=== PATIENT | male | born 1960 | race Caucasian/White ===

== ENCOUNTER 2021-11-23 09:26 | Outpatient (CLI) | payer MEDICAID, SELFPAY ==
[2021-11-23 10:59] VITALS: BMI 31.1
--- NOTE | 2021-11-23 10:59 | ECG_ITS ---
[facility] Test Date: 2021-11-23 Pat Name: Nathaniel Fontenot Department: Room: Gender: Male Technical Service Representative: Nola Vazquez : 1960 Requested By: Colleen Ellis Order Number: [id number] Rebeca MD: Rosalee Cabello M.D. Interpretive Statements NAME OF STUDY: LEXISCAN SESTAMIBI STRESS TEST INDICATION: Chest Pain PROCEDURE: At the baseline, the blood pressure was 147/75 mm Hg with a heart rate of 82 bpm. The electrocardiogram showed sinus rhythm, poor anterior R wave progression. The Lexiscan was infused over a period of 20 seconds. A total of 0.4 milligrams of Lexiscan was infused. The stress phase was continued for a total of 5 minutes. Heart rate at the end of the stress phase was 97 bpm with a blood pressure of 140/70 mm Hg. The EKG at the peak infusion revealed sinus rhythm with no significant ST-T wave changes. Sestamibi was injected 20 seconds after the Lexiscan infusion. Blood pressure at the end of the recovery phase was 134/75 mm Hg with a heart rate of 90 beats per minute. CONCLUSION: 1. No significant EKG changes with the LexiScan infusion. 2. No LexiScan induced chest pain or cardiac arrhythmia. 3. Normal blood pressure and heart rate response. 4. Sestamibi/sestamibi perfusion scan pending; see separate report. Electronically Signed On 12-09-2021 6:47:27 TESTING CONSULTANT by Rosalee Cabello M.D. [id number]
--- NOTE | 2021-11-23 10:59 | NMCV_ITS ---
NM dorinda perf SPECT r/s* [id number] Nathaniel Fontenot Age: 61 Gender: M : 1960 Exam Date: 11/23/2021 11:02 Ordering Phys: Colleen Ellis MD ([email or web address]) Technologist: VIC Donald Exam Location: [facility] Indications: CHEST PAIN STRESS TEST Please [facility] IMAGE PROTOCOL Stress/Rest 1 Lexiscan Day Radiopharmaceutical Dose (mCi) Administration Site Administered by Rest: Tc-99m 10.7 IV VIC Reyez Sestamibi Stress:Tc-99m 32.6 IV VIC Donald Sestamisandrita Rest: 23-Nov-2021 60 Discovery 630 Stress: 23-Nov-2021 30 Discovery 630 0.4mg Lexiscan. Supine position only as patient was unable to lay prone. SPECT RESULTS Technical Quality: Excellent Raw Data Analysis: Normal Image Corrections: No attenuation or motion correction applied Summed Stress Score: 15 Summed Rest Score: 20 Summed Difference Score: 0 PERFUSION FINDINGS Large area of fixed perfusion defect noted in basal to distal inferior and apical wall on both rest and stress images suggestive of old myocardial infarction versus artifact. Small area of mild reversibility noted in basal inferolateral wall suggestive of possible ischemia in the circumflex territory. Small area of fixed perfusion defect noted in mid anterior wall suggestive of possible artifact FUNCTIONAL RESULTS (calculated via Gated SPECT) Stress Image LV EF (%): 67 Stress EDV (mL):88 TID: 1.04 Stress ESV (mL):29 Rest Image LV EF (%): 67 FUNCTIONAL FINDINGS: Inferior wall severe hypokinesis. Apical and apical inferior akinesis IMPRESSIONS Large area of old myocardial infarction versus scarring noted in basal distended and apical wall without ai-infarct ischemia. Small area of questionable ischemia versus artifact noted in basal inferolateral wall. In general no significant ischemia noted. EKG segment will be documented separately. Colleen Ellis MD (Electronically Signed) Final Date: 24 November 2021 18:36 S
[2021-11-23] MEDS: regadenoson 0.4 Mg/5 ml Syringe IVP (11:33)
[2021-11-23 11:45] VITALS: BP 134/75; PULSE 90
== END 2021-11-23 09:27 | disposition home or self-care (01) ==
LOC: RAD 09:41 → CDL 10:30
PROVIDERS: PCP Student in an Organized Health Care Education/Training Program; Visit Provider Internal Medicine Cardiovascular Disease
DX: R07.9 Chest pain, unspecified (principal); R06.02 Shortness of breath
CPT/HCPCS: 78452; 93017; A9500; J2785

== ENCOUNTER → 2021-12-24 14:42 | Outpatient (BNVA) | payer MEDICAID, SELFPAY | PROVIDERS: PCP Student in an Organized Health Care Education/Training Program; Visit Provider Internal Medicine | DX: Z01.818 Encounter for other preprocedural examination (principal); I25.810 Atherosclerosis of coronary artery bypass graft(s) without angina pectoris; I10 Essential (primary) hypertension | CPT/HCPCS: 99214 ==

== ENCOUNTER → 2022-03-17 14:30 | Outpatient (BNVA) | payer MEDICAID, SELFPAY | PROVIDERS: PCP Student in an Organized Health Care Education/Training Program; Referring Provider Student in an Organized Health Care Education/Training Program; Visit Provider Orthopaedic Surgery | DX: M17.12 Unilateral primary osteoarthritis, left knee (principal); M25.562 Pain in left knee | CPT/HCPCS: 73560; 73565; 99203; 99204 ==

== ENCOUNTER 2022-04-26 11:01 | Observation (INO) | payer MEDICAID, SELFPAY ==
--- NOTE | 2022-04-21 12:54 | ECG_ITS ---
[facility] Test Date: 2022-04-21 Pat Name: Nathaniel Nevarez Department: Room: Gender: Male Site Supervising Technical Operator: : 1960 Requested By: Austin Hook Order Number: [id number] Rebeca MD: Colton Sarmiento M.D. Measurements Intervals [place] Rate: 84 P: 59 OK: 136 QRS: 68 QRSD: 89 T: 37 QT: 347 QTc: 412 Interpretive Statements SINUS RHYTHM POSSIBLE LEFT ATRIAL ENLARGEMENT [-0.1mV P-WAVE IN V1/V2] POSSIBLE ANTERIOR MYOCARDIAL INFARCTION , OF INDETERMINATE AGE [30 ms Q WAVE IN V3/V4, OR R < 0.2 mV IN V4] PROBABLE INFERIOR MYOCARDIAL INFARCTION , OF INDETERMINATE AGE [35 ms Q WAVE IN II/aVF] No previous ECG available for comparison Electronically Signed On 04-21-2022 17:59:26 CDT by Colton Sarmiento M.D. [id number]
[2022-04-21 13:05] VITALS: BMI 30.2
[2022-04-21 13:43] LABS: Anion Gap 16.4 (5-19); Blood Urea Nitrogen 16 mg/dL (8-23); Calcium 8.7 mg/dL (8.5-10.5); Carbon Dioxide 24 mmol/L (22-29); Chloride 101 mmol/L (98-107); Glomerular Filtration Rate 75.7 mL/min (90-130); Glucose 175 mg/dL (65-115); Osmolality Calculated 289 mOsm/kg (285-295); Potassium 4.4 mmol/L (3.5-5.1); Sodium 137 mmol/L (136-145)
--- NOTE | 2022-04-21 13:44 | ANES.PREANE2 ---
Pre-Anesthetic Assessment Height/Weight: Height 1.73 m Weight 90.265 kg Operation Date: 04/26/22 09:35 Proposed Procedures p Left total knee arthroplasty: 16533,M17.12(Left) - Everett Briones MD Familial anesthetic complications: None Was Beta Lalo taken within 24 hours: Yes Was Clonidine taken within 24 hours: N/A Social No alcohol and No tobacco Exam alert, oriented x 3, clear to auscultation bilaterally and regular rate & rhythm Airway Submandibular: within normal limits Cervical ROM: within normal limits Mallampati: Class II Dentition: full CV/HEM Coronary Artery Disease (CABG) and Hypertension GI Gastroesophageal Reflux Disease Metabolic Diabetes Mellitus and Hyperlipidemia [facility] [place] Osteoarthritis/DJD Anesthetic Plan ASA status: 3 Anesthesia: Regional (specify below) (SAB with adductor blk) Medications/Allergies Home Medications Medication Instructions Recorded Confirmed Last Taken Type acetaminophen 500 mg tablet 500 mg PO Q6H PRN 09/21/21 04/21/22 Unknown History aspirin 81 mg tablet,delayed 81 mg PO DAILY 09/21/21 04/21/22 Unknown History release (Adult Low Dose Aspirin) atorvastatin 80 mg tablet 80 mg PO DAILY 09/21/21 04/21/22 Unknown History celecoxib 200 mg capsule (Celebrex) 200 mg PO BID 09/21/21 04/21/22 Unknown History colchicine 0.6 mg tablet 0.3 mg PO DAILY 09/21/21 04/21/22 Unknown History dapagliflozin 10 mg tablet 10 mg PO DAILY 09/21/21 04/21/22 Unknown History (Farxiga) fluticasone propionate 50 1 spray INTRANASAL DAILY 09/21/21 04/21/22 Unknown History mcg/actuation nasal spray,suspension (Allergy Relief (fluticasone)) glipizide 5 mg tablet 5 mg PO BID 09/21/21 04/21/22 Unknown History ibuprofen 200 mg tablet 200 mg PO Q6H PRN 09/21/21 04/21/22 Unknown History insulin degludec 100 unit/mL (3 56 unit SUBCUT DAILY ml 09/21/21 04/21/22 Unknown History mL) subcutaneous pen (Tresiba FlexTouch U-100 insulin) liraglutide 0.6 mg/0.1 mL (18 mg/3 1.8 mg SUBCUT DAILY 09/21/21 04/21/22 Unknown History mL) subcutaneous pen injector (Victoza 2-Lopez) metoprolol succinate 50 mg 50 mg PO DAILY #90 tab 09/21/21 04/21/22 Unknown Rx tablet,extended release 24 hr multivitamin 1 tab PO DAILY 09/21/21 04/21/22 Unknown History omeprazole 20 mg capsule,delayed 20 mg PO DAILY 09/21/21 04/21/22 Unknown History release tamsulosin 0.4 mg capsule (Flomax) 0.4 mg PO DAILY 09/21/21 04/21/22 Unknown History tramadol 50 mg tablet 50 mg PO Q6H PRN 09/21/21 04/21/22 Unknown History travoprost 0.004 % eye drops 1 drp OPHTHALMIC (EYE) BEDTIME 09/21/21 04/21/22 Unknown History (Travatan Z) zolpidem 10 mg tablet (Ambien) 10 mg PO .hs tab 09/21/21 04/21/22 Unknown History Allergies Allergy/AdvReac Type Severity Reaction Status Date / Time None Allergy Unknown Unknown Uncoded 03/17/22 14:41 PFS Anesthesia Medical History CAD (coronary artery disease) HTN (hypertension) Family History Mother Hypertension Father COPD (chronic obstructive pulmonary disease) Social History Smoking and tobacco status: never smoked Alcohol intake: never Data Anesthesia : 04/21/22 13:20 BMP 04/21/22 13:20 Sodium 137 Potassium 4.4 Chloride 101 Carbon Dioxide 24 BUN 16 Creatinine 1.0 Glucose 175 H Calcium 8.7 Cardiac Studies: Sestamibi Stress Test (Cardiology) 11/23/21
[2022-04-26] VITALS (17 sets, daily range): BP systolic 108–173; BP diastolic 67–93; PULSE 55–93; RESP 10–20; TEMP 36.1–36.8; O2SAT 95–100; BMI 30.2
[2022-04-26] MEDS: sodium chloride 0.9% 1,000 ML 30 ML IV (08:16)
[2022-04-26] MEDS: oxyCODONE 20 mg ER (12 HR) Tablet PO (08:18)
[2022-04-26] MEDS: CELEcoxib 200 mg Capsule 400 MG PO (08:18)
[2022-04-26] MEDS: acetaminophen 500 mg Tablet 1000 MG PO ×2 (08:18→17:14)
[2022-04-26] MEDS: gabapentin 300 mg Capsule PO ×2 (08:19→17:12)
--- NOTE | 2022-04-26 08:44 | P.ANESASSM_ITS ---
Pre-Anesthetic Assessment Height/Weight: Height 1.73 m Weight 90.265 kg Temp Pulse Resp BP Pulse Ox 97.6 F 93 18 173/93 98 04/26/22 07:49 04/26/22 07:49 04/26/22 07:49 04/26/22 07:49 04/26/22 07:49 Preop Diagnosis: OsteoarthritisLeft knee Operation Date: 04/26/22 09:35 Proposed Procedures p Left total knee arthroplasty: 67046,M17.12(Left) - Everett Briones MD Familial anesthetic complications: None Was Beta Lalo taken within 24 hours: N/A Was Clonidine taken within 24 hours: N/A Last intake: Intake Last Liquid Date 04/25/22 Last Liquid Time 18:00 Last Solid Date 04/25/22 Last Solid Time 14:00 Social No alcohol and No tobacco Exam alert, oriented x 3, clear to auscultation bilaterally and regular rate & rhythm Airway Submandibular: within normal limits Cervical ROM: within normal limits Mallampati: Class I Dentition: full History/ROS No significant complaints Pulmonary None reported CV/HEM None reported None reported Hepatic None reported GI None reported Metabolic None reported Musc/skel None reported Neuropsych None reported Anesthetic Plan ASA status: 1 Anesthesia: Anesthesia Evaluation and General Other: We discussed risk and benefits of general anesthesia including PONV, sore throat (sometimes severe), corneal abrasion, positioning and peripheral nerve injuries, life threatening allergic reaction, post operative ICU admission requiring prolonged intubation, stroke, heart attack, , and rare incidences of recall. Patient consents to proceed with general anesthesia. Risk of > 500 ml blood loss (7ml/kg in children): No Medications/Allergies Home Medications Medication Instructions Recorded Confirmed Last Taken Type acetaminophen 500 mg tablet 650 mg PO Q6H PRN 09/21/21 04/26/22 04/26/22 06:00 History aspirin 81 mg tablet,delayed 81 mg PO DAILY 09/21/21 04/26/22 04/24/22 History release (Adult Low Dose Aspirin) atorvastatin 80 mg tablet 80 mg PO DAILY 09/21/21 04/26/22 04/25/22 19:30 History celecoxib 200 mg capsule (Celebrex) 200 mg PO BID 09/21/21 04/26/22 04/25/22 07:00 History colchicine 0.6 mg tablet (Colcrys) 0.6 mg PO DAILY 09/21/21 04/26/22 04/25/22 07:00 History dapagliflozin 10 mg tablet 10 mg PO DAILY 09/21/21 04/26/22 04/24/22 History (Farxiga) fluticasone propionate 50 1 spray INTRANASAL DAILY 09/21/21 04/26/22 04/25/22 20:00 History mcg/actuation nasal spray,suspension (Allergy Relief (fluticasone)) glipizide 5 mg tablet 5 mg PO BID 09/21/21 04/26/22 04/25/22 07:00 History ibuprofen 200 mg tablet 200 mg PO Q6H PRN 09/21/21 04/26/22 04/24/22 History insulin degludec 100 unit/mL (3 56 unit SUBCUT DAILY ml 09/21/21 04/26/22 04/25/22 20:00 History mL) subcutaneous pen ([employer] FlexTouch U-100 insulin) liraglutide 0.6 mg/0.1 mL (18 mg/3 1.8 mg SUBCUT DAILY 09/21/21 04/26/22 04/24/22 History mL) subcutaneous pen injector (Acision 2-Lopez) metoprolol succinate 50 mg 50 mg PO DAILY #90 tab 09/21/21 04/26/22 04/26/22 06:00 Rx tablet,extended release 24 hr multivitamin 1 tab PO DAILY 09/21/21 04/26/22 04/24/22 History omeprazole 20 mg capsule,delayed 20 mg PO DAILY 09/21/21 04/26/22 04/26/22 06:00 History release tamsulosin 0.4 mg capsule (Flomax) 0.4 mg PO DAILY 09/21/21 04/26/22 04/25/22 07:00 History tramadol 50 mg tablet 50 mg PO Q6H PRN 09/21/21 04/26/22 04/26/22 06:00 History travoprost 0.004 % eye drops 1 drp OPHTHALMIC (EYE) BEDTIME 09/21/21 04/26/22 04/25/22 20:00 History (Travatan Z) zolpidem 10 mg tablet (Ambien) 10 mg PO .hs tab 09/21/21 04/26/22 04/25/22 20:00 History caffeine 200 mg tablet 200 mg PO BID PRN 04/26/22 04/26/22 04/26/22 06:00 History loperamide 2 mg capsule 2 mg PO Q4H PRN 04/26/22 04/26/22 04/26/22 06:00 History Allergies Allergy/AdvReac Type Severity Reaction Status Date / Time No Known Allergies Allergy Verified 04/26/22 07:51 Current Medications Generic Name Dose Route Start Last Admin Trade Name Nayan PRN Reason Stop Dose Admin Sodium Chloride 1,000 mls @ 30 mls/hr 04/26/22 07:45 04/26/22 08:16 Sodium Chloride 0.9% IV 04/27/22 07:44 30 mls/hr .Q24H YESENIA Administration PFSH Anesthesia Medical History CAD (coronary artery disease) HTN (hypertension) Family History Mother Hypertension Father COPD (chronic obstructive pulmonary disease) Social History Smoking and tobacco status: never smoked Alcohol intake: never Data Anesthesia : 04/21/22 13:20 Cardiac Studies: Sestamibi Stress Test (Cardiology) 11/23/21
--- NOTE | 2022-04-26 08:59 | W.PM.OPSFHP ---
Same Day Surgery H&P Indication for Procedure/HPI DATE OF PROCEDURE: April 26, 2022 CHIEF COMPLAINT/INDICATIONFOR SURGICAL PROCEDURE: Osteoarthritis left knee here for total knee arthroplasty PREOP DIAGNOSIS: OsteoarthritisLeft knee PLANNED PROCEDURE: Operation Date: 04/26/22 09:35 Proposed Procedures p Left total knee arthroplasty: 67084,M17.12(Left) - Everett Briones MD 61-year-old has failed anti-inflammatories and corticosteroid injections. Severe pain with ambulate severe pain with ambulation, requiring crutches. Here for elective left total knee arthroplasty Medications/Allergies* Home Medications Medication Instructions Recorded Confirmed Type acetaminophen 500 mg tablet 650 mg PO Q6H PRN 09/21/21 04/26/22 History aspirin 81 mg tablet,delayed 81 mg PO DAILY 09/21/21 04/26/22 History release (Adult Low Dose Aspirin) atorvastatin 80 mg tablet 80 mg PO DAILY 09/21/21 04/26/22 History celecoxib 200 mg capsule (Celebrex) 200 mg PO BID 09/21/21 04/26/22 History colchicine 0.6 mg tablet (Colcrys) 0.6 mg PO DAILY 09/21/21 04/26/22 History dapagliflozin 10 mg tablet 10 mg PO DAILY 09/21/21 04/26/22 History (Farxiga) fluticasone propionate 50 1 spray INTRANASAL DAILY 09/21/21 04/26/22 History mcg/actuation nasal spray,suspension (Allergy Relief (fluticasone)) glipizide 5 mg tablet 5 mg PO BID 09/21/21 04/26/22 History ibuprofen 200 mg tablet 200 mg PO Q6H PRN 09/21/21 04/26/22 History insulin degludec 100 unit/mL (3 56 unit SUBCUT DAILY ml 09/21/21 04/26/22 History mL) subcutaneous pen (Tresiba FlexTouch U-100 insulin) liraglutide 0.6 mg/0.1 mL (18 mg/3 1.8 mg SUBCUT DAILY 09/21/21 04/26/22 History mL) subcutaneous pen injector (Victoza 2-Lopez) multivitamin 1 tab PO DAILY 09/21/21 04/26/22 History omeprazole 20 mg capsule,delayed 20 mg PO DAILY 09/21/21 04/26/22 History release tamsulosin 0.4 mg capsule (Flomax) 0.4 mg PO DAILY 09/21/21 04/26/22 History tramadol 50 mg tablet 50 mg PO Q6H PRN 09/21/21 04/26/22 History travoprost 0.004 % eye drops 1 drp OPHTHALMIC (EYE) BEDTIME 09/21/21 04/26/22 History (Travatan Z) zolpidem 10 mg tablet (Ambien) 10 mg PO .hs tab 09/21/21 04/26/22 History caffeine 200 mg tablet 200 mg PO BID PRN 04/26/22 04/26/22 History loperamide 2 mg capsule 2 mg PO Q4H PRN 04/26/22 04/26/22 History Allergies/Adverse Reactions Allergy/AdvReac Type Severity Reaction Status Date / Time No Known Allergies Allergy Verified 04/26/22 07:51 Current Medications: Generic Name Dose Route Start Last Admin Trade Name Freq PRN Reason Stop Dose Admin Sodium Chloride 1,000 mls @ 30 mls/hr 04/26/22 07:45 04/26/22 08:16 Sodium Chloride 0.9% IV 04/27/22 07:44 30 mls/hr .Q24H YESENIA Administration Pertinent History/Comorbid Conditions* Medical History (Updated 03/17/22 @ 15:38 by Everett Briones MD) CAD (coronary artery disease) HTN (hypertension) Family History (Updated 09/21/21 @ 09:21 by Paulette Olmos RN) COPD (chronic obstructive pulmonary disease) Father Hypertension Mother Social History Smoking and tobacco status: never smoked Alcohol intake: never Pertinent Exam Findings alert, oriented x 3, clear to auscultation bilaterally, regular rate & rhythm and operative site marked Recommendations Surgery/Procedure today Coding Level of Care Code Acute Boring Machine Operator Production for Leftyg Neal
[2022-04-26] MEDS: midazolam 1 mg/mL INJ 5 ML 5 MG IVP (09:10)
--- NOTE | 2022-04-26 09:12 | SUR.PREOP ---
0915-Time out was completed at bedside in OPS RM11. Dr Martinez and RN preformed block at patient tolerated well
--- NOTE | 2022-04-26 09:23 | ANES.PROC ---
Anesthesia Procedures Procedure/Date: 04/26/22 Nerve Block ^: Nerve Block 1: Main Anesthesia: spinal anesthesia block Time Out Performed: Yes Consent: requested by attending/covering physician, from patient, risks and benefits reviewed and patient agrees to proceed Nerve block location: adductor canal Anesthesia monitors applied: pulse oximetry, EKG, BP cuff and oxygen Nerve block position: supine Anesthetic Used: ropivicaine 0.5% Amount of anesthesia used (mL): 15 Ultrasound used to: recognize landmarks and visualize and ID femerol nerve Nerve Stimulator Used?: No Interscalene/Femoral BLK: 4 stimuplex 21 g needle used for position and inplane approach, visualize local anesthetic spread and no vascular puncture identified Injection: neg aspiration of heme Patient Tolerated Procedure: well Complications: none Additional Comments: After time out sterile prep, using sterile technique, and using real time US guidance for target selection needle was inserted with real time visualization of needle entry and real time visualization of needle advancement toward intended target. Negative aspiration. LA injected incrementally with negative aspiration every 5 cc and real time US visualization of LA spread throughout procedure. Tolerated well. Image(s) saved.
[2022-04-26] MEDS: ceFAZolin 2,000 MG in sodium chloride 0.9% (plus) 50 ML 100 MG IV (09:40)
[2022-04-26] MEDS: tranexamic acid 1,000 mg/10mL SDV 1000 MG IV (09:58)
[2022-04-26] MEDS: tobramycin 40 mg/mL SDV 2mL 160 MG XX (10:20)
[2022-04-26] MEDS: tranexamic acid 1,000 mg/10mL SDV 1000 MG XX (10:21)
[2022-04-26] MEDS: ketorolac 30 mg/mL INJ XX (10:21)
[2022-04-26] MEDS: EPINEPHrine 1 mg/mL INJ XX (10:22)
--- NOTE | 2022-04-26 11:20 | XRR_ITS ---
PROCEDURE INFORMATION: Exam: XR Left Knee Exam date and time: 04/26/2022 11:33 AM Age: 61 years old Clinical indication: Device placement; Joint replacement hardware; Prior surgery; Surgery date: Post-operative (0-2 days); Surgery type: Left total knee arthroplasty TECHNIQUE: Imaging protocol: Radiologic exam of the Left knee. Views: 1 or 2 views. COMPARISON: CR XR knees AP WB w LT lmt ORTH 03/17/2022 2:58 PM FINDINGS: Bones/joints: The patient has undergone recent insertion of a total knee prosthesis. Some gas is present in the soft tissues from the recent surgery. There are no fractures. Soft tissues: See Bones/joints finding. XR/XR knee LT 1-2V [id number] IMPRESSION: Satisfactory appearance of the knee prosthesis.
--- NOTE | 2022-04-26 11:21 | P.OP_ITS ---
Operative Report Date of procedure: April 26, 2022 Pre-op diagnosis: Preop Diagnosis OsteoarthritisLeft knee Post-op diagnosis: same Post-op diagnosis: Same Post-op findings: Same Procedure done: Left total knee arthroplasty Implants: [place] total knee arthroplasty components were used includin) Size 5 triathalon cruciate retaining femoral component 2) Size 6 Tritanium tibial component 3) size 6, 11 mm thickness CR tibial insert Pathology: none sent Surgeon: Everett Briones Anesthesia: Nerve Block (Spinal, adductor canal block) Estimated blood loss (mL): 100 Complications: None Findings: Exposed subchondral bone medial femoral condyle. An area of old impaction was seen over the anterior lateral femoral condyle Condition: stable Disposition: PACU Procedure: The patient was taken to the operating room. Patient was given 1 g of tranexamic acid . The above anesthesia provided by the anesthesia service. A timeout was performed. The patient was prepped and draped in the usual fashion with the lower extremity exposed. A anterior incision was made, midline, from a point proximal to the patella to the distal tibial tubercle. The knee was entered through a medial parapatellar approach. The patella could be displaced laterally and the knee flexed. The patellar fat pad was resected to provide better visibility. Retractors were placed medially and laterally adjacent to the tibial plateau. The femoral canal was drilled in line with the longitudinal axis of the femur. Intramedullary femoral guide for used to make a distal femoral cut in 5 degrees of valgus, resecting 8 mm from the more prominent condyle. Next the extra medullary tibial guide was placed in alignment with the longitudinal axis of the tibia. The cutting guides were set to remove sufficient bone to eliminate the area of bone loss over the anterior lateral tibia. The proximal tibia was then cut removing approximately 9 mm of medial tibial bone. The femoral measuring guide was then placed over the distal femur. Rotation was verified checking the relationship of the guide to the condyle and the trochlear groove. The femur was measured and cut for the desired femoral component. The desired tibial baseplate was then chosen. A trial reduction with the femur tibial baseplate and polyethylene was done, assuring that the knee was stable throughout full motion. The patella was inspected and the cartilage found to be of satisfactory quality without osteophytes. It tracked reasonably within the trochlea throughout range of motion. A decision was made to not resurfaced patella. The femur and tibia were then press-fit into place. The posterior capsule and collateral ligaments were then injected with a solution of 100 mL of 0.2% ropivacaine, 1 mL of a 1:1000 epinephrine solution, 30 mg of Toradol, and 1 g of tranexamic acid. Final polyethylene component was then snapped into place into the tibia. The extensor retinaculum was closed with a running 1 Stratafix interrupted 1 Ethibond. The subcutaneous tissues were closed with 2-0 Vicryl and the skin was closed with a running 4-0 Stratafix. The wound was covered with a Dermabond Prineo dressing. It was covered with 4xrs and a compressive Tubigauze was applied. The patient was taken to recovery room in stable condition.
--- NOTE | 2022-04-26 11:40 | SUR.PHASEI ---
1126 PT TO PACU 5 PT AWAKES TO VOICE, VERBALLY DENIES PAIN, AND NAUSEA, PT WAS SPINAL ANESTHESIA, PT ON RA NO DISTRESS NOTED , GOOD RESP , LT KNEE DRESSING D/I FIRST ICE TO SITE, LT FOOT WITH STRONG REGULAR PULSE NOTED, BILAT FOOT PUMPS ON, IV TO LT FOREARM #20 WITH NS 300 ML UP AT KVO RATE PER GRAVITY, HOB AT 30 DEGREES SPINAL LEVEL ( PT STATES NORMAL SENSATION TO TOUCH) AT T 8 PT ID BRACELET TO RT WRIST PT ID'D WITH 2 IDENTIFIERS. MONITOR SR WITH NO ECTOPY NOTED.
--- NOTE | 2022-04-26 11:43 | SUR.PHASEI ---
1140 X RAYS DONE, PT TOLERATED WELL, DR ANGEL AT BEDSIDE.
--- NOTE | 2022-04-26 11:51 | SUR.PHASEI ---
DR ANGEL AT BEDSIDE TALKING WITH PT, PT ALERT TALKATIVE, [place], DRESSING D/I.
[2022-04-26 12:30] LABS: Glucose Point of Care 177 mg/dL (70-110)
[2022-04-26] MEDS: sodium chloride 0.9% 1,000 ML 100 ML IV ×2 (12:37→22:48)
[2022-04-26] MEDS: insulin lispro 100 unit/1 mL SUBCUT ×2 (12:38→21:04)
--- NOTE | 2022-04-26 13:01 | PC.NURSE ---
Patient states feeling has not returned to feet bilaterally. Pedal pulses palpated bilaterally, capillary refill <2 seconds.
--- NOTE | 2022-04-26 14:17 | ANE.PACU2 ---
Inpatient post-anesthesia follow up: Airway intact: Yes Vital signs: Temperature 98.0 F Pulse Rate 65 Respiratory Rate 15 Blood Pressure 140/73 Pulse Oximetry 100 Oxygen Delivery Me thod Room Air Oxygen Flow Rate Fraction of Inspir ed Oxygen Hydration adequate: Yes Nausea and vomiting: No Pain level: 1 Mental status: Baseline
--- NOTE | 2022-04-26 14:25 | PC.NURSE ---
Patient states BLE are still numb feeling. PT aware. AR RN
[2022-04-26] MEDS: oxyCODONE 5 mg IR Tab/Cap PO (14:31)
--- NOTE | 2022-04-26 15:20 | PC.NURSE ---
PT to bedside for therapy. JAYASHREE RN
--- NOTE | 2022-04-26 15:24 | PC.NURSE ---
Patient educated on IS use. Patient verbalized understanding. AR RN
[2022-04-26 16:54] LABS: Glucose Point of Care 87 mg/dL (70-110)
[2022-04-26] MEDS: CELEcoxib 200 mg Capsule PO (17:12)
[2022-04-26 21:00] LABS: Glucose Point of Care 260 mg/dL (70-110)
--- NOTE | 2022-04-26 21:00 | PC.NURSE ---
Ice pack changed
--- NOTE | 2022-04-26 23:00 | PC.NURSE ---
ice pack changed
[2022-04-27] MEDS: acetaminophen 500 mg Tablet 1000 MG PO ×2 (00:10→11:57)
--- NOTE | 2022-04-27 02:00 | PC.NURSE ---
ice pack changed
[2022-04-27 04:27] VITALS: BP 169/83; PULSE 77; RESP 16; TEMP 36.7; O2SAT 99
[2022-04-27 04:27] LABS: Hemoglobin 14.2 g/dL (11.7-16.6)
--- NOTE | 2022-04-27 04:28 | PC.NURSE ---
ice pack changed
[2022-04-27 06:07] VITALS: RESP 16
[2022-04-27] MEDS: oxyCODONE 5 mg IR Tab/Cap PO (06:07)
--- NOTE | 2022-04-27 06:20 | PC.NURSE ---
ice pack changed
[2022-04-27 07:13] LABS: Glucose Point of Care 202 mg/dL (70-110)
[2022-04-27] MEDS: insulin lispro 100 unit/1 mL SUBCUT (07:36)
[2022-04-27] MEDS: aspirin 81 mg EC Tablet PO (07:37)
[2022-04-27] MEDS: gabapentin 300 mg Capsule PO (07:38)
[2022-04-27] MEDS: CELEcoxib 200 mg Capsule PO (07:38)
[2022-04-27] MEDS: tamsulosin 0.4 mg Capsule PO (07:38)
[2022-04-27] MEDS: pantoprazole DR 40 mg Tablet PO (07:39)
[2022-04-27] MEDS: colchicine 0.6 mg Tablet PO (09:18)
[2022-04-27] MEDS: metoprolol succinate ER (24 HR) 50 mg Tablet PO (09:18)
[2022-04-27] MEDS: atorvastatin 40 mg Tablet 80 MG PO (09:18)
--- NOTE | 2022-04-27 11:00 | PM.DCS ---
Discharge Providers Date of Admission: 04/26/22 11:01 Date of Discharge: April 27, 2022 Attending Provider at Admission: Everett Angel MD Attending Provider at Discharge: Everett Angel MD Primary Care Provider: Timmy [facility] Course Hospital Course The patient tolerated surgery well. They remained hemodynamically stable. They was begun on aspirin and Toprol for DVT prophylaxis. The patient was mobilized with therapy beginning the day of surgery and by the first postoperative day independent with the walker. As the pain was adequately controlled and they were fully mobile they were discharged home. Physical Exam Narrative: On the day of discharge the knee incision was clean. They had no drainage. There is minimal swelling in the thigh and knee and the calf. No distal neurovascular deficits were noted Discharge Data Studies Completed and Pending Completed Studies During Hospitalization Category Date Time Status XR knee LT 1-2V 21537 Routine Exams 04/26/22 11:20 Completed Radiology Impressions Knee X-Ray 04/26/22 11:20 IMPRESSION: Satisfactory appearance of the knee prosthesis. Laboratory Results Hgb 14.2 g/dL (11.7-16.6) 04/27/22 04:18 Sodium 137 mmol/L (136-145) 04/21/22 13:20 Potassium 4.4 mmol/L (3.5-5.1) 04/21/22 13:20 Chloride 101 mmol/L (98-107) 04/21/22 13:20 Carbon Dioxide 24 mmol/L (22-29) 04/21/22 13:20 Anion Gap 16.4 (5-19) 04/21/22 13:20 BUN 16 mg/dL (8-23) 04/21/22 13:20 Creatinine 1.0 mg/dL (0.7-1.2) 04/21/22 13:20 GFR Calculation 75.7 mL/min (90-130) L 04/21/22 13:20 Glucose 175 mg/dL (65-115) H 04/21/22 13:20 POC Glucose 202 mg/dL (70-110) H 04/27/22 07:06 Calculated Osmolality 289 mOsm/kg (285-295) 04/21/22 13:20 Calcium 8.7 mg/dL (8.5-10.5) 04/21/22 13:20 Vitals Last Vital Signs Temp 98.0 F 04/27/22 04:27 Pulse 77 04/27/22 04:27 Resp 16 04/27/22 06:07 BP 169/83 04/27/22 04:27 Pulse Ox 99 04/27/22 04:27 Discharge Plan Discharge Patient Disposition: Home Condition: Stable Prescriptions: New oxycodone 5 mg Tablet 5 mg PO Q4H PRN (Reason: Moderate Pain) 7 Days Qty: 30 0RF gabapentin 300 mg Capsule 300 mg PO BID 7 Days Qty: 14 0RF Continued multivitamin Tablet 1 tab PO DAILY 0RF acetaminophen 500 mg tablet 650 mg PO Q6H PRN (Reason: Pain) 0RF ibuprofen 200 mg tablet 200 mg PO Q6H PRN (Reason: Pain) 0RF glipizide 5 mg tablet 5 mg PO BID 0RF omeprazole 20 mg capsule,delayed release(DR/EC) 20 mg PO DAILY 0RF colchicine [Colcrys] 0.6 mg tablet 0.6 mg PO DAILY 0RF Tresiba FlexTouch U-100 100 unit/mL (3 mL) insulin pen 56 unit SUBCUT DAILY 0RF Victoza 2-Lopez 0.6 mg/0.1 mL (18 mg/3 mL) pen injector 1.8 mg SUBCUT DAILY 0RF atorvastatin 80 mg tablet 80 mg PO DAILY 0RF Farxiga 10 mg tablet 10 mg PO DAILY 0RF aspirin [Adult Low Dose Aspirin] 81 mg tablet,delayed release (DR/EC) 81 mg PO DAILY 0RF fluticasone propionate [Allergy Relief (fluticasone)] 50 mcg/actuation spray,suspension 1 spray intranasal DAILY 0RF Rx Instructions: administer into each nostril tramadol 50 mg tablet 50 mg PO Q6H PRN (Reason: Pain) 0RF celecoxib [Celebrex] 200 mg capsule 200 mg PO BID 0RF zolpidem [Ambien] 10 mg tablet 10 mg PO .hs 0RF travoprost [Travatan Z] 0.004 % drops 1 drp ophthalmic (eye) BEDTIME 0RF tamsulosin [Flomax] 0.4 mg capsule 0.4 mg PO DAILY 0RF metoprolol succinate 50 mg tablet extended release 24 hr 50 mg PO DAILY Qty: 90 4RF caffeine 200 mg Tablet 200 mg PO BID PRN (Reason: Fatigue) 0RF Imodium 2 mg Capsule 2 mg PO Q4H PRN (Reason: Diarrhea) 0RF Rx Instructions: administer after each loose stool until symptoms controlled; do not exceed 8 mg per 24 hrs Discharge Orders: Discharge Order (Routine); Ordered 04/27/22 Ordered By: Everett Angel Referrals: Miguel Melchor FNP [Physician Bicycle Taxi Driver] - 04/30/22 9:00 am Discharge Diet: Advance as tolerated Discharge Activity: Limit activity as instructed Patient Instructions: Opioid Safety Activity Restrictions/Additional Instructions: Okay to shower Keep Tubigauze sleeve in place for swelling. Okay to remove for hygiene. Apply FirstIce up to 20 min/hr for pain and swelling Take Neurontin twice a day for 7 days. take oxycodone for breakthrough pain. Exercises per physical therapy. May weight-bear as tolerated on total knee arthroplasty IF HAVE ANY PROBLEMS OR QUESTIONS CALL [facility] AND ASK TO HAVE DR. ANGEL PAGED. Discharge Attestations Time Spent in Discharge Care*: other Quality Metrics Clinical Quality Measures [ No reported AMI, CVA or VTE this stay] Coding Level of Care Code Acute Chg ALEXANDRU note
[2022-04-27 12:08] VITALS: BP 153/89; PULSE 95; RESP 16; TEMP 36.4; O2SAT 98
== END 2022-04-27 16:45 | disposition home or self-care (01) ==
LOC: OBGYN 11:01
PROVIDERS: Anesthesiology; Admitting Provider Orthopaedic Surgery; PCP Student in an Organized Health Care Education/Training Program; Visit Provider Orthopaedic Surgery
PROC: (CPT 27447; principal; 2022-04-26 09:15)
DX: M17.12 Unilateral primary osteoarthritis, left knee (principal); Z79.82 Long term (current) use of aspirin; I25.10 Atherosclerotic heart disease of native coronary artery without angina pectoris; I10 Essential (primary) hypertension; Z95.1 Presence of aortocoronary bypass graft; E11.9 Type 2 diabetes mellitus without complications; E78.5 Hyperlipidemia, unspecified; Z79.4 Long term (current) use of insulin
CPT/HCPCS: 27447; 36415; 36416; 73560; 80048; 82962; 85018; 93005; 96372; 97110; 97161; 97165; 97530; C1776; G0378; J0171; J1815; J1885; J2250; J2704; J2795; J3260; J7030

== ENCOUNTER → 2022-04-30 08:44 | Outpatient (BNVA) | payer MEDICAID, SELFPAY | PROVIDERS: PCP Student in an Organized Health Care Education/Training Program; Visit Provider Nurse Practitioner Family | DX: Z96.652 Presence of left artificial knee joint (principal) | CPT/HCPCS: 99024 ==

== ENCOUNTER → 2022-05-27 13:14 | Outpatient (BNVA) | payer MEDICAID, SELFPAY | PROVIDERS: PCP Student in an Organized Health Care Education/Training Program; Visit Provider Nurse Practitioner Family | DX: Z96.652 Presence of left artificial knee joint (principal) | CPT/HCPCS: 73560; 73565; 99024 ==

== ENCOUNTER → 2022-06-24 14:31 | Outpatient (BNVA) | payer MEDICAID, SELFPAY | PROVIDERS: PCP Student in an Organized Health Care Education/Training Program; Visit Provider Internal Medicine | DX: I25.810 Atherosclerosis of coronary artery bypass graft(s) without angina pectoris (principal); I10 Essential (primary) hypertension; M79.606 Pain in leg, unspecified | CPT/HCPCS: 99214 ==

== ENCOUNTER → 2022-07-09 11:18 | Outpatient (BNVA) | payer MEDICAID, SELFPAY | PROVIDERS: PCP Student in an Organized Health Care Education/Training Program; Visit Provider Orthopaedic Surgery | DX: Z96.652 Presence of left artificial knee joint (principal) | CPT/HCPCS: 73560; 73565; 99024 ==

== ENCOUNTER 2022-08-02 12:41 | Outpatient (CLI) | payer MEDICAID, SELFPAY ==
--- NOTE | 2022-08-02 13:00 | USCV_ITS ---
Nathaniel Nevarez Age: 61 Gender: M : 1960 Exam Date: 08/02/2022 13:35 Ordering Phys: Colton Sarmiento M.D ([email or web address]) Technologist: Grant Garcia Exam Location: [facility] [place] Indication: LEFT LEG PAIN Risk Factors: Previous Vascular Surgery: RIGHT LEFT BP: 132.0 / 71.00 BP: 137.0/ 79.00 0 0 Waveform Velocity (cm/s) Velocity (cm/s) Waveform Triphasic 89.9 Iliac Prox 92.7 Triphasic Triphasic 95.6 Iliac Mid 82.8 Triphasic Triphasic 98.5 Iliac Distal 110.3 Triphasic Triphasic 77.0 EXTENSION FORESTER 98.1 Triphasic Triphasic 67.7 SFA Prox 123.6 Triphasic Triphasic 78.6 SFA Mid 136.7 Triphasic Triphasic 91.8 SFA Dist 152.3 Triphasic Triphasic 62.8 POP 111.9 Triphasic Triphasic 62.8 DIAL PAINTER 58.5 Triphasic Triphasic 59.0 DPA 64.5 Biphasic 1.2 SIM 1.2 FINDINGS 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
== END 2022-08-02 12:42 | disposition home or self-care (01) ==
LOC: RAD 12:43
PROVIDERS: PCP Student in an Organized Health Care Education/Training Program; Visit Provider Internal Medicine
DX: M79.605 Pain in left leg (principal); I70.8 Atherosclerosis of other arteries
CPT/HCPCS: 93925

== ENCOUNTER → 2022-08-06 08:37 | Outpatient (BNVA) | payer MEDICAID, SELFPAY | PROVIDERS: PCP Student in an Organized Health Care Education/Training Program; Visit Provider Nurse Practitioner Family | DX: Z96.652 Presence of left artificial knee joint (principal) | CPT/HCPCS: 99213 ==

== ENCOUNTER → 2022-12-27 13:50 | Outpatient (BNVA) | payer MEDICAID, SELFPAY | PROVIDERS: PCP Family Medicine; Visit Provider Nurse Practitioner Family | DX: I25.810 Atherosclerosis of coronary artery bypass graft(s) without angina pectoris (principal); I10 Essential (primary) hypertension; Z79.82 Long term (current) use of aspirin | CPT/HCPCS: 99214 ==

== ENCOUNTER → 2023-06-27 14:50 | Outpatient (BNVA) | payer MEDICAID, SELFPAY | PROVIDERS: PCP Family Medicine; Visit Provider Internal Medicine | DX: Z01.818 Encounter for other preprocedural examination (principal); I25.810 Atherosclerosis of coronary artery bypass graft(s) without angina pectoris; I10 Essential (primary) hypertension | CPT/HCPCS: 99214 ==

== ENCOUNTER → 2023-07-28 08:33 | Outpatient (BNVA) | payer MEDICAID, SELFPAY | PROVIDERS: PCP Family Medicine; Visit Provider Anesthesiology Pain Medicine | DX: M25.569 Pain in unspecified knee (principal) | CPT/HCPCS: 99202 ==

== ENCOUNTER → 2024-02-15 15:05 | Outpatient (BNVA) | payer MEDICAID, SELFPAY | PROVIDERS: PCP Family Medicine; Visit Provider Internal Medicine | DX: I25.810 Atherosclerosis of coronary artery bypass graft(s) without angina pectoris (principal); I10 Essential (primary) hypertension; Z95.1 Presence of aortocoronary bypass graft | CPT/HCPCS: 99214 ==

== ENCOUNTER → 2024-06-15 11:25 | Outpatient (BNVA) | payer MEDICAID, SELFPAY | PROVIDERS: PCP Family Medicine; Referring Provider Internal Medicine; Visit Provider Internal Medicine | DX: E78.2 Mixed hyperlipidemia; I25.810 Atherosclerosis of coronary artery bypass graft(s) without angina pectoris; E11.649 Type 2 diabetes mellitus with hypoglycemia without coma; E11.65 Type 2 diabetes mellitus with hyperglycemia; Z79.4 Long term (current) use of insulin; Z79.85 Long-term (current) use of injectable non-insulin antidiabetic drugs | CPT/HCPCS: 80053; 80061; 82044; 83036; 99204 ==

== ENCOUNTER → 2025-02-14 13:40 | Outpatient (BNVA) | payer MEDICARE, MEDICAID, SELFPAY | PROVIDERS: PCP Family Medicine; Visit Provider Internal Medicine | DX: I25.810 Atherosclerosis of coronary artery bypass graft(s) without angina pectoris (principal); I10 Essential (primary) hypertension; Z79.01 Long term (current) use of anticoagulants; Z79.82 Long term (current) use of aspirin; Z95.1 Presence of aortocoronary bypass graft | CPT/HCPCS: 99213 ==

== ENCOUNTER → 2025-09-03 14:08 | Outpatient (BNVA) | payer MEDICARE, MEDICAID, SELFPAY | PROVIDERS: PCP Family Medicine; Visit Provider Internal Medicine | DX: I25.118 Atherosclerotic heart disease of native coronary artery with other forms of angina pectoris (principal); I10 Essential (primary) hypertension; Z95.1 Presence of aortocoronary bypass graft | CPT/HCPCS: 99214 ==